=== PATIENT | female | born 1965 | race Two or more races ===

== ENCOUNTER 2017-06-26 15:08 | Emergency (ER) | payer MEDICAID ==
[2017-06-26 15:19] VITALS: BP 139/86; PULSE 88; RESP 18; TEMP 98.4; O2SAT 97
== END 2017-06-26 15:29 | disposition left against medical advice (07) ==
LOC: C.ER 15:08
DX: Z02.89 Encounter for other administrative examinations (principal)

== ENCOUNTER 2018-03-15 10:44 | Emergency (ER) | payer MEDICAID ==
[2018-03-15 10:50] VITALS: BMI 22.2
--- NOTE | 2018-03-15 10:58 | C.PDOC ---
History Of Present Illness 52-year-old female presents to the ED requesting refill of her Xanax. Patient states she has not taken her medication in approx two months. She has not been able to get medication from her PMD, but she does have an with [facility] scheduled. Patient denies suicidal/homicidal ideations and has no physical complaints at this time. Time Seen by Provider: 03/15/18 10:54 Chief Complaint (Nursing): Med Refill History Per: Patient History/Exam Limitations: no limitations Onset/Duration Of Symptoms: Days Current Symptoms Are (Timing): Still Present Additional History Per: Patient Past Medical History Reviewed: Historical Data, Nursing Documentation, Vital Signs Vital Signs: Last Vital Signs Temp 97.4 F L 03/15/18 11:24 Pulse 96 H 03/15/18 11:24 Resp 20 03/15/18 11:24 BP 128/80 03/15/18 11:24 Pulse Ox 99 03/15/18 12:46 - Medical History PMH: Anxiety, Asthma, HTN Surgical History: No Surg Hx Family History: States: No Known Family Hx - Social History Hx Alcohol Use: No Hx Substance Use: No Review Of Systems Constitutional: Negative for: Fever, Chills Cardiovascular: Negative for: Chest Pain, Palpitations Respiratory: Negative for: Shortness of Breath Gastrointestinal: Negative for: Nausea, Vomiting, Abdominal Pain Neurological: Negative for: Weakness, Numbness, Headache, Dizziness Psych: Positive for: Anxiety. Negative for: Depression, Suicidal ideation Physical Exam - Physical Exam Appears: Well, Non-toxic, No Acute Distress Skin: Normal Color, Warm, Dry Eye(s): bilateral: Normal Inspection Oral Mucosa: Moist Neck: Supple Cardiovascular: Rhythm Regular Respiratory: Normal Breath Sounds, No Rales, No Rhonchi, No Wheezing Extremity: Normal ROM Neurological/Psych: Oriented x3 ED Course And Treatment O2 Sat by Pulse Oximetry: 99 (on RA) Pulse Ox Interpretation: Normal Progress Note: Patient given 1 dose of Xanax 1mg in ED. [place] RX reviewed. Explained to patient I am unable to refill her Xanax in the ED since it is a chronic controlled medication - needs to be obtained from her PMD or psychiatrist. Patietn instructed to keep [facility] appt as scheduled, and she understands she should return to ED if she has worsening or concerning symptoms. Reevaluation Time: 11:25 Reassessment Condition: Improved Medical Decision Making Medical Decision Making: [facility] reviewed: 12/26/2017 5 12/26/2017 ALPRAZOLAM 0.5 MG TABLET 60.0 30 DO SIOBHAN [id number] VINLA ( 6706) 0 [facility] 11/25/2017 5 11/25/2017 ALPRAZOLAM 2 MG TABLET 60.0 30 DO SIOBHAN [id number] [facility]INLA (6706 ) 0 [facility] [place] 10/24/2017 2 10/24/2017 ALPRAZOLAM 1 MG TABLET 60.0 30 DO SIOBHAN [id number] PRIME (7977 ) 0 [facility] 08/24/2017 5 08/23/2017 ALPRAZOLAM 1 MG TABLET 60.0 30 DO SIOBHAN [id number] VINLA (6706 ) 0 [facility] 07/29/2017 4 07/29/2017 ALPRAZOLAM 1 MG TABLET 60.0 30 MO ELIZABETH [id number] VINLA (6706 ) 0 [facility] [place] 07/02/2017 4 07/02/2017 ALPRAZOLAM 1 MG TABLET 60.0 30 MO ELIZABETH [id number] [facility]INLA (6706 ) 0 [facility] [place] 06/15/2017 1 06/14/2017 ALPRAZOLAM 2 MG TABLET 90.0 30 LI LOC [id number] [facility] ( 5699) 0 [facility] 06/06/2017 4 06/06/2017 CLONAZEPAM 1 MG TABLET 60.0 30 MO ELIZABETH [id number] VINLA (6706 ) 0 [facility] [place] 05/19/2017 3 05/19/2017 ALPRAZOLAM 2 MG TABLET 90.0 30 LI LOC [id number] [facility] ( 8083) 0 [facility] 05/09/2017 4 05/09/2017 ALPRAZOLAM 1 MG TABLET 60.0 30 MO ELIZABETH [id number] VINLA (6706 ) 0 [facility] [place] 04/06/2017 4 04/06/2017 ALPRAZOLAM 1 MG TABLET 60.0 30 MO ELIZABETH [id number] VINLA (6706 ) 0 [facility] [place] 04/06/2017 3 04/06/2017 ALPRAZOLAM 2 MG TABLET 90.0 30 LI LOC [id number] [facility] ( 8083) 0 [facility] [place] Disposition Counseled Patient/Family Regarding: Diagnosis, Need For Followup - Disposition Referrals: Olga Artis MD [Staff Provider] - [facility] [Outside] Disposition: HOME/ ROUTINE Disposition Time: 11:25 Condition: STABLE Additional Instructions: FOLLOW UP AT [facility] SCHEDULED YOU NEED TO OBTAIN MEDICATION FROM YOUR PSYCHIATRIST OR PRIMARY DOCTOR RETURN TO ER IF YOU HAVE WORSENING OR CONCERNING SYMPTOMS Instructions: Anxiety, Adult (DC) Forms: [employer] (Citizen Of [place]) Print Language: NORWEGIAN - Clinical Impression Clinical Impression: Anxiety, Medication refill - Scribe Statement The provider has reviewed the documentation as recorded by the Scribe (Aletha Hanley) Provider Attestation: All medical record entries made by the Scribe were at my direction and personally dictated by me. I have reviewed the chart and agree that the record accurately reflects my personal performance of the history, physical exam, medical decision making, and the department course for this patient. I have also personally directed, reviewed, and agree with the discharge instructions and disposition.
[2018-03-15 11:25] VITALS: BP 128/80; PULSE 96; RESP 20; TEMP 97.4
[2018-03-15 12:09] VITALS: O2SAT 99
== END 2018-03-15 11:38 | disposition home or self-care (01) ==
LOC: C.ER 10:44
DX: Z76.0 Encounter for issue of repeat prescription (principal); F41.9 Anxiety disorder, unspecified

== ENCOUNTER → 2018-03-20 15:44 | Emergency (ER) | payer MEDICAID ==
[2018-03-20 15:44] VITALS: BMI 22.2
== END | disposition left against medical advice (07) ==
LOC: C.ER 15:44
DX: Z02.89 Encounter for other administrative examinations (principal); Z00.8 Encounter for other general examination

== ENCOUNTER 2018-03-24 08:09 | Emergency (ER) | payer MEDICAID ==
[2018-03-24 08:36] VITALS: O2SAT 98; BMI 21.2
[2018-03-24] MEDS ORDERED: Sodium Chloride 0.9% 1,000 ML IV ONE (09:00)
[2018-03-24 09:24] LABS: BASO % 0.8 % (0.0-2.0); HEMOGLOBIN 12.2 g/dL (11.0-16.0); LYMPH # 0.6 K/uL (1.0-4.3); LYMPH % 13.8 % (20.0-40.0); MEAN CELL VOLUME 83.7 fL (81.0-99.0); MEAN CORPUSCULAR HGB CONC 34.6 g/dL (33.0-37.0); MEAN PLATELET VOLUME 8.7 fL (7.2-11.7); MONO # 0.2 K/uL (0.0-0.8); MONO % 3.4 % (0.0-10.0); NEUT # 3.7 K/uL (1.8-7.0); NRBC % 0.1 % (0.0-2.0); RBC 4.21 Mil/uL (3.80-5.20); RED CELL DISTRIBUTION WIDTH 13.3 % (11.5-14.5); WHITE BLOOD COUNT 4.5 K/uL (4.8-10.8)
--- NOTE | 2018-03-24 09:25 | C.PDOC ---
History Of Present Illness 52 y/o female with history of HTN and Anxiety presents to ED with c/o feeling like she is going to withdrawal from xanax. Patient states she has been on xanax for "years" and Dr. Artis recently stopped prescribing medication and has had to buy on street. Patient is on Methadone program and admits to nausea, lightheadedness and weakness. Patient denies fever, chills, vomiting, abdominal pain or any other complaints at this time. Time Seen by Provider: 03/24/18 08:28 Chief Complaint (Nursing): Substance Abuse History Per: Patient History/Exam Limitations: no limitations Onset/Duration Of Symptoms: Days Current Symptoms Are (Timing): Still Present Suicide/Self Injury Attempted (Context): None Modifying Factor(s): Narcotics Past Medical History Reviewed: Historical Data, Nursing Documentation, Vital Signs Vital Signs: Last Vital Signs Temp 98.4 F 03/24/18 08:20 Pulse 99 H 03/24/18 08:20 Resp 18 03/24/18 08:20 BP 137/83 03/24/18 08:20 Pulse Ox 98 03/24/18 09:25 - Medical History PMH: Anxiety, Asthma, HTN Surgical History: No Surg Hx Family History: States: No Known Family Hx - Social History Hx Alcohol Use: No Hx Substance Use: Yes - Immunization History Hx Tetanus Toxoid Vaccination: No Hx Influenza Vaccination: Yes Hx Pneumococcal Vaccination: No Review Of Systems Constitutional: Negative for: Fever, Chills Cardiovascular: Positive for: Light Headedness Gastrointestinal: Positive for: Nausea. Negative for: Vomiting, Abdominal Pain Neurological: Positive for: Weakness. Negative for: Numbness, Headache Physical Exam - Physical Exam Appears: Non-toxic, No Acute Distress Skin: Warm, Dry, No Rash Head: Atraumatic, Normacephalic Eye(s): bilateral: Normal Inspection Oral Mucosa: Moist Neck: Normal ROM, Supple Cardiovascular: Rhythm Regular Respiratory: Normal Breath Sounds, No Rales, No Rhonchi, No Wheezing Gastrointestinal/Abdominal: Soft, No Tenderness, No Guarding, No Rebound Extremity: Normal ROM, Capillary Refill (<2 seconds) Neurological/Psych: Oriented x3, Normal Speech, Slow To Respond With Command Gait: Steady ED Course And Treatment - Laboratory Results Result Diagrams: 03/24/18 09:14 03/24/18 09:14 O2 Sat by Pulse Oximetry: 98 (RA) Pulse Ox Interpretation: Normal Medical Decision Making Medical Decision Making: patient feeling better after hydration and ativan. Will d/c to follow up with Dr. Artis Patient does not want detox Disposition Counseled Patient/Family Regarding: Studies Performed, Diagnosis, Need For Followup - Disposition Referrals: Olga Artis MD [Staff Provider] - Disposition: HOME/ ROUTINE Disposition Time: 10:13 Condition: STABLE Instructions: Anxiety, Adult (DC) Forms: [facility] ([place]), General Discharge Instructions - POA Present On Arrival: None - Clinical Impression Clinical Impression: Anxiety - Scribe Statement The provider has reviewed the documentation as recorded by the Scribe Selina Wang All medical record entries made by the Scribe were at my direction and personally dictated by me. I have reviewed the chart and agree that the record accurately reflects my personal performance of the history, physical exam, medical decision making, and the department course for this patient. I have also personally directed, reviewed, and agree with the discharge instructions and disposition.
[2018-03-24 09:39] LABS: ALB/GLOB RATIO 1.3 (1.0-2.1); ALT/SGPT 24 U/L (9-52); AST/SGOT 26 U/L (14-36); BLOOD UREA NITROGEN 14 mg/dL (7-17); CALCIUM 10.1 mg/dl (8.6-10.4); GFR AFRICAN-AMERICAN > 60; GFR NON-AFRICAN AMERICAN > 60
[2018-03-24 09:49] LABS: HCG,QUALITATIVE URINE NEGATIVE (NEGATIVE)
[2018-03-24 09:55] LABS: SQUAMOUS EPITHIAL 1 /hpf (0-5); URINE BACTERIA RARE (<OCC); URINE BILIRUBIN 1+ (NEGATIVE); URINE BLOOD NEGATIVE (NEGATIVE); URINE CLARITY Hazy (Clear); URINE COLOR Amber (YELLOW); URINE GLUCOSE (UA) NORMAL (Normal); URINE LEUKOCYTE ESTERASE 1+ Leu/uL (Negative); URINE PROTEIN 1+ mg/dL (NEGATIVE)
[2018-03-24 10:07] LABS: BARBITURATES, UR NEGATIVE (NEGATIVE); PHENCYCLIDINE, UR NEGATIVE (NEGATIVE)
[2018-03-24 10:10] LABS: BENZODIAZEPINES, UR POSITIVE (NEGATIVE); OPIATES, UR POSITIVE (NEGATIVE)
[2018-03-24 10:23] VITALS: BP 114/76; PULSE 71; RESP 16; TEMP 98.1
== END 2018-03-24 10:24 | disposition home or self-care (01) ==
LOC: C.ER 08:09
DX: F41.9 Anxiety disorder, unspecified (principal)
CPT/HCPCS: 80053; 80320; 80324; 80345; 80346; 80349; 80353; 80358; 80361; 81001; 83992; 84703; 85025; 96361; 96374; 99284; J2060; J7030